=== PATIENT | male | born 1975 | race Two or more races ===

== ENCOUNTER 2025-01-01 18:32 | Emergency (ER) | payer OTHER ==
[~2025-01-01] VITALS: Ht 167.6 cm; Wt 70.3 kg
[~2025-01-01 18:32] MED LIST: NABUMETONE750 MG PO
[2025-01-01] MEDS ORDERED: ORPHENADRINE CITRATE 30 MG/ML AMPUL IM ONE (19:45)
[2025-01-01] MEDS ORDERED: DEXAMETHASONE SODIUM PHOSPHATE 4 MG/ML VIAL IM ONE (19:45)
[2025-01-01] MEDS ORDERED: KETOROLAC TROMETHAMINE 30 MG VIAL IV ONE (19:45)
[2025-01-01] MEDS ORDERED: ORPHENADRINE CITRATE 30 MG/ML AMPUL ONE (20:08)
[2025-01-01] MEDS ORDERED: KETOROLAC TROMETHAMINE 30 MG VIAL ONE (20:09)
[2025-01-01] MEDS ORDERED: DEXAMETHASONE SODIUM PHOSPHATE 4 MG/ML VIAL ONE (20:09)
[2025-01-01 20:53] LABS: BASO % 0.8 % (0.1-1.2); EOS # 0.14 (0.04-0.54); EOS % 2.2 % (0.7-7.0); LYMPH # 1.87 (1.18-3.74); LYMPH % 29.8 % (19.3-53.1); MEAN PLATELET VOLUME 11.00 fl (9.4-12.4); MONO # 0.55 (0.24-0.82); MONO % 8.8 % (4.7-12.5); NEUT # 3.65 (1.56-6.13); NEUT % 58.1 % (34.0-71.1); RED CELL DISTRIBUTION WIDTH 15.0 % (11.6-14.4)
[2025-01-01 20:54] LABS: ERYTHROCYTE SEDIMENTATION RATE 24 mm/hr (0-15)
[2025-01-01 21:25] LABS: ALT/SGPT 48.0 U/L (12-78); AST/SGOT 22.0 U/L (15-37); BILIRUBIN TOTAL 0.57 mg/dL (0.3-1.2); BUN CREA RATIO 22.0 (7.0-25.0); CREATININE SERUM 1.01 mg/dL (0.70-1.30); GFR 78.51; GLOBULINA 3.7 G/DL (2.4-3.5); GLUCOSE FASTING 127.0 mg/dL (65-100); OSMOLALITY SERUM 284.0 MOSM/KG (275-295)
[2025-01-01 21:33] LABS: INR 1.04
[2025-01-01 21:41] LABS: URINE APPEARANCE Clear; URINE BILIRRUBIN Negative (NEGATIVE); URINE BLOOD Negative; URINE COLOR Yellow; URINE GLUCOSE Negative (NEGATIVE); URINE KETONE Negative (NEGATIVE); URINE LEUKOCYTE Negative; URINE NITRATE Negative; URINE PROTEIN Negative (NEGATIVE); URINE UROBILINOGEN 1.0 E.U./dl
[2025-01-01 21:45] LABS: URINE RBC 5.1 uL (0.0-20.8); URINE WBC 2.4 uL (0.0-23.2)
[2025-01-01 21:49] LABS: URINE BACTERIA 2.3 uL (0.0-1933); URINE CAST 0.14 uL (0.0-1.40); URINE EPITHELIAL CELLS 0.7 uL (0.0-38.8)
[2025-01-02] MEDS ORDERED: DEXAMETHASONE4 MG PO (02:20)
[2025-01-02] MEDS ORDERED: PEPCID AC20 MG PO (02:20)
[2025-01-02] MEDS ORDERED: KETOROLAC TROME10 MG PO (02:20)
[2025-01-02] MEDS ORDERED: NORFLEX100MG PO (02:20)
== END 2025-01-02 02:26 | disposition home or self-care (01) ==
LOC: ER 18:32
DX: M62.838 Other muscle spasm (principal); R07.89 Other chest pain; Z88.0 Allergy status to penicillin; Z88.1 Allergy status to other antibiotic agents
CPT/HCPCS: 36415; 71260; Q9965